=== PATIENT | female | born 1960 | race Caucasian/White ===

== ENCOUNTER 2018-06-15 11:26 | Outpatient (CLI) | payer BC | END 2018-06-15 11:27 | disposition home or self-care (01) | LOC: BICMAMMO 11:26 | PROVIDERS: ATTEND Family Medicine | DX: Z12.31 Encounter for screening mammogram for malignant neoplasm of breast (principal); Z80.3 Family history of malignant neoplasm of breast | CPT/HCPCS: 77063; 77067 ==

== ENCOUNTER 2018-11-27 10:12 | Day surgery (SDC) | payer BC ==
[2018-11-26 09:55] VITALS: BMI 38.0
[2018-11-27] MEDS ORDERED: PROPOFOL 200 MG/20 ML VIAL ONE (11:16)
[2018-11-27] MEDS ORDERED: Lidocaine 1% PF 5 ML VIAL ONE (11:16)
[2018-11-27] MEDS ORDERED: Succinylcholine Chloride 20 MG/ML 10 ml SYRINGE FS ONE (11:16)
--- NOTE | 2018-11-27 11:59 | RAD ---
CERVICAL SPINE THREE VIEWS: Lateral views were obtained in neutral, flexion, and extension. Indications: Pre op. Comparison: None. FINDINGS: Mild degenerative change of the cervical spine noted. 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 Loss of disc space at C3-4 with posterior spondylosis. Slight anterolisthesis at C5-6. Loss of disc space at C5-6 and C6-7. Anterior osteophytes. Posterior spondylosis at C5-6 and C6-7. No significant change in alignment with flexion or extension. IMPRESSION: Moderate degenerative changes of the cervical spine as described. POS: [facility]
--- NOTE | 2018-11-27 13:24 | MRI ---
FCervical spine MRI with and without contrast: 11/27/2018 HISTORY: Congenital fusion, left upper extremity numbness, radiculopathy TECHNIQUE: Multiplanar multisequence MR imaging of the cervical spine provided with and without contr ast FINDINGS: STIR imaging demonstrates degenerative edematous endplate change laterally on the left at C 3-4. No significant anterolisthesis or retrolisthesis is noted. No prevertebral soft tissue swelling. C2-3: There is congenital fusion at the C2-3 intervertebral disc level with congenital fusion of the C2-3 facet joints bilaterally. Mild left neural foraminal stenosis. No significant central canal or r ight neural foraminal stenosis. C3-4: Disc space narrowing, disc desiccation, and disc bulge present with a superimposed central/left paracentral disc protrusion. This effaces the ventral thecal sac and abuts the ventral aspect of the cord with a moderate degree of central canal stenosis extending into the left lateral region. There is also left-sided facet and uncovertebral osteophyte formation with moderate/severe left-sided neura l foraminal stenosis. Mild right neural foraminal stenosis. C4-5: There is disc space narrowing and disc desiccation with mild disc bulge causing mild central ca nal stenosis. Facet and uncovertebral osteophyte formation noted bilaterally, left greater than right . Mild/moderate left neural foraminal stenosis. No significant right neural foraminal stenosis. C5-6: Disc space narrowing and disc desiccation. Mild bilateral facet hypertrophy. No significant marilyn tral canal or neural foraminal stenosis. C6-7: Disc space narrowing, disc desiccation, and mild disc bulge present with mild central canal isabella nosis. No significant neural foraminal stenosis. C7-T1: Mild bilateral facet hypertrophy with no significant central canal or neural foraminal stenosi s. Postcontrast imaging demonstrates no abnormal enhancement involving the contents of the thecal sac, t he intervertebral discs, or the imaged osseous structures. IMPRESSION: Congenital fusion changes at C2-3. Multilevel cervical spine degenerative change, most pr ominent at the C3-4 level centrally and to the left of midline as detailed above.
[2018-11-27] MEDS ORDERED: Fentanyl 100 MCG/2 ML VIAL ONE (13:42)
== END 2018-11-27 15:00 | disposition home or self-care (01) ==
LOC: SDC/OP 10:12
PROVIDERS: ATTEND Radiology Diagnostic Neuroimaging
PROC: B03BYZZ Magnetic Resonance Imaging (MRI) of Spinal Cord using Other Contrast (ICD-10-PCS; principal; 2018-11-27)
DX: M43.22 Fusion of spine, cervical region (principal); M50.31 Other cervical disc degeneration, high cervical region; M47.812 Spondylosis without myelopathy or radiculopathy, cervical region; M43.12 Spondylolisthesis, cervical region; Z91.040 Latex allergy status; Z79.899 Other long term (current) drug therapy
CPT/HCPCS: 36415; 72040; 72156; 82565; J2001; J2704; J3010

== ENCOUNTER 2019-08-21 10:54 | Outpatient (CLI) | payer BC ==
--- NOTE | 2019-08-21 12:52 | MMO ---
Bilateral MAMMO Bilat Screen [facility]. CLINICAL HISTORY: Patient is 58 years old and is seen for screening. The patient has the following family history of breast cancer: mother, at age 56. The patient has no personal history of cancer. VIEWS: The views performed were: bilateral craniocaudal with tomosynthesis and bilateral mediolateral oblique with tomosynthesis. FILMS COMPARED: The present examination has been compared to prior imaging studies performed at [facility] on 05/28/2015, 05/31/2016, 06/13/2017 and 06/15/2018. This study has been interpreted with the assistance of computer-aided detection. MAMMOGRAM FINDINGS: There are scattered fibroglandular densities. There is a stable nodule seen in the left breast. There are no suspicious masses, suspicious calcifications, or new areas of architectural distortion. IMPRESSION: THERE IS NO MAMMOGRAPHIC EVIDENCE OF MALIGNANCY. A ROUTINE FOLLOW-UP MAMMOGRAM IN 1 YEAR IS RECOMMENDED. THE RESULTS OF THIS EXAM WERE SENT TO THE PATIENT. ACR BI-RADS Category 2 - Benign finding MAMMOGRAPHY NOTE: 1. A negative mammogram report should not delay a biopsy if a dominant of clinically suspicious mass is present. 2. Approximately 10% to 15% of breast cancers are not detected by mammography. 3. Adenosis and dense breasts may obscure an underlying neoplasm. Reported by: MADHURI CHENEY MD Electonically Signed: [id number]
== END 2019-08-21 10:55 | disposition home or self-care (01) ==
LOC: BICMAMMO 10:54
PROVIDERS: ATTEND Family Medicine
DX: Z12.31 Encounter for screening mammogram for malignant neoplasm of breast (principal); Z80.3 Family history of malignant neoplasm of breast
CPT/HCPCS: 77063; 77067